=== PATIENT | male | born 1945 | race Caucasian/White ===

== ENCOUNTER 2020-09-25 19:20 | Inpatient (IN) | payer MEDICARE ==
[2020-09-25] MEDS: Cyclobenzaprine 10 MG TAB PO PRN (22:58)
[2020-09-25] MEDS: traMADol HCl 50 MG TAB PO PRN (22:59)
[2020-09-26] MEDS: Ascorbic Acid 500 mg Chewable Tablet PO SCH (09:13)
[2020-09-26] MEDS: Cyclobenzaprine 10 MG TAB PO PRN (09:14)
[2020-09-26] MEDS: Acetaminophen 325 MG TAB PO PRN (09:14)
[2020-09-26] MEDS: PSEUDOEPHEDRINE PO SCH ×2 (13:16→21:48)
--- NOTE | 2020-09-26 13:21 | HP ---
PRINCIPAL DIAGNOSIS: Right hip fracture, status post surgical fixation for therapy. BRIEF HISTORY: This is a pleasant 75-year-old gentleman with history of Parkinson disease, apparently fell at home. He was evaluated by his physician for persistent pain and x-ray showed a displaced femoral neck fracture on the right. He was referred to the hospital for admission and evaluation and Dr. Castillo operated on him on 09/20 with a percutaneous screw fixation. Postoperative period was uneventful and he was felt to be a candidate for inpatient rehabilitation and transferred here. The patient did have an echocardiogram done, which showed an ejection fraction of 50% to 55% with moderately dilated left atrium and mild aortic and tricuspid regurgitation. Currently, the patient is up in bed, eating lunch. He is a poor historian. He denies any pain. No family at bedside. Discussed with nursing. PAST MEDICAL HISTORY: 1. Parkinson disease. 2. Osteoporosis. PAST SURGICAL HISTORY: Tonsillectomy. MEDICATIONS: He has been transferred here on the following medications; 1. Tylenol 650 p.o. q.6 p.r.n. 2. Vitamin C 1000 mg daily. 3. Flexeril 5 mg t.i.d. p.r.n. 4. Melatonin 6 mg at bedtime. 5. Pseudoephedrine one tablet q.12 scheduled. 6. Mirapex 0.125 mg at bedtime. 7. Tramadol 50 mg q.6 p.r.n. for moderate pain. ALLERGIES: FENTANYL. FAMILY HISTORY: Noncontributory to current admission. PSYCHOSOCIAL HISTORY: The patient apparently is and lives at home with his spouse. No documented tobacco, alcohol, or recreational drug abuse. REVIEW OF SYSTEMS: GENERAL: The patient denies any change in weight or fatigue. CARDIOVASCULAR: Denies any chest pain, shortness of breath, palpitations, PND, orthopnea, or pedal edema. RESPIRATORY: Denies any chronic cough, expectoration, or pleuritic-type chest pain. GASTROINTESTINAL: Denies any nausea, vomiting, diarrhea, constipation, hematemesis, melena, or hematochezia. GENITOURINARY: Denies any frequency, urgency, dysuria, or hematuria. EXTREMITIES: Right hip and leg pain. SKIN: Denies any rash. ENT: Denies any changes with speech, vision, or swallowing. PHYSICAL EXAMINATION: GENERAL: A pleasant 75-year-old male, who is up in bed, enjoying breakfast. He denies any questions or concerns. He is not in any distress. VITAL SIGNS: He is afebrile. Heart rate is 74, respirations 16, oxygen saturation 94% on room air, blood pressure 101/57. HEENT: Normocephalic and atraumatic. Pupils equally reacting to light and accommodation. NECK: No JVD, thyromegaly, cervical adenopathy, or throat exudates. No carotid bruits. CARDIOVASCULAR: S1 and S2 plus. Rate and rhythm regular. RESPIRATORY: Normal vesicular breath sounds heard in all lung nguyen. ABDOMEN: Soft, nontender. Bowel sounds heard in all quadrants. EXTREMITIES: Without cyanosis or clubbing. Trace edema to right leg. Right hip incision with dressing. CENTRAL NERVOUS SYSTEM: Awake and responsive. Cranial nerves 2 through 12 grossly intact. Mild cogwheel rigidity. No obvious tremors. Generalized weakness. LABORATORY DATA: No laboratory values were done in this admission. IMPRESSION: 1. Right hip fracture, status post surgical fixation. 2. Parkinson disease. 3. Osteoporosis. 4. Anemia, likely due to acute blood loss. 5. Deconditioning. PLAN: 1. Continue discharge medications from previous hospitalization. 2. Nutritional support. 3. Orthopedic precautions. 4. DVT prophylaxis with Lovenox. 5. Decubitus precautions. 6. Stress ulcer prophylaxis. 7. Fall precautions. 8. PT/OT eval and treat. 9. Episodes of PACs and PJCs that were bigeminy, which resolved spontaneously. ESTIMATED LENGTH OF STAY: Two weeks. Job ID: [id number]
[2020-09-26 15:46] LABS: SARS-CoV-2 MS2 Positive; SARS-CoV-2 N Gene Negative; SARS-CoV-2 S Gene Negative; SARS-CoV-2 by NAA Not Detected (NotDetected); SARS-CoV-2 orf1ab Negative
[2020-09-26] MEDS: Melatonin 3 MG TAB PO SCH (21:49)
[2020-09-26] MEDS: Pramipexole Di-HCl 0.25 MG TAB PO SCH (21:50)
[2020-09-27 05:38] LABS: Anion Gap 14 mmol/L (10-20); BUN (Urea Nitrogen) 29 mg/dL (8.4-25.7); Calc. Creatinine Clearance 79 mL/min (70-130); Calcium 9.3 mg/dL (7.8-10.44); Carbon Dioxide 24 mmol/L (23-31); Chloride 103 mmol/L (98-107); Glucose 94 mg/dL (83-110); Potassium 4.6 mmol/L (3.5-5.1); Sodium 136 mmol/L (136-145)
[2020-09-27 05:41] LABS: Band 6 % (5-11); Eosinophils 6 % (0-10); Hemoglobin 14.9 g/dL (14.0-18.0); Lymphocytes 18 % (21-51); MDiff Complete? YES; Mean Corpuscular HGB CONC 33.8 g/dL (32.0-36.0); Mean Corpuscular Hemoglobin 32.2 pg (27.0-31.0); Mean Corpuscular Volume 95.2 fL (78.0-98.0); Mean Platelet Volume 8.2 fL (7.4-10.4); Metamyelocyte 2 % (0-0); Monocytes 6 % (0-10); Myelocyte 1 % (0-0); Neutrophil 55 % (42-75); Platelet Count 211 thou/uL (130-400); Platelet Morphology Comment Appears Adequate; RBC Distribution Width 12.2 % (11.5-14.5); RBC Morphology Normal; Reactive Lymphocytes 6 % (0-10); Red Blood Cell (RBC) Count 4.62 mill/uL (4.70-6.10); White Blood Cell (WBC) Count 8.5 thou/uL (4.8-10.8)
[2020-09-27] MEDS: traMADol HCl 50 MG TAB PO PRN ×2 (08:43→22:54)
[2020-09-27] MEDS: Ascorbic Acid 500 mg Chewable Tablet PO SCH (08:43)
[2020-09-27] MEDS: PSEUDOEPHEDRINE PO SCH (08:45)
--- NOTE | 2020-09-27 12:48 | PRG ---
DATE OF SERVICE: 09/27/2020 SUBJECTIVE: Mr. Odell is up in his bed, just finished lunch. He states that he did not get enough food to eat and dietitian is actually working with him on that. He is doing well with therapy. He denies any questions. Pain medicines are helping. Unfortunately, apparently, his home medication of the pseudoephedrine is not available and his heart rate is dropping with therapy. We will try to substitute something similar what we have in the formulary as apparently his is unable to bring it per nursing. OBJECTIVE: VITAL SIGNS: He is afebrile, heart rate 72, respirations 18, oxygen saturation 97% on room air, blood pressure 145/69. CARDIOVASCULAR SYSTEM: S1 and S2 plus. RESPIRATORY SYSTEM: Normal vesicular breath sounds. ABDOMEN: Soft, nontender. Bowel sounds heard in all quadrants. EXTREMITIES: Without cyanosis or clubbing. Right hip incision is healthy. CENTRAL NERVOUS SYSTEM: Mild cognitive rigidity, generalized weakness, otherwise nonfocal. LABORATORY VALUES: White count is 8.5, H and H are 14.9 and 44. Sodium 136, potassium 4.6, BUN and creatinine 29 and 0.75. IMPRESSION: 1. Right hip fracture, status post surgical fixation. 2. Parkinson disease. 3. Possible autonomic neuropathy with episodes of bradycardia. He is supposed to be on pseudoephedrine 1 tablet q.12. 4. Osteoporosis. 5. Deconditioning. PLAN: 1. Continue current medications. 2. Try to find an alternative for his pseudoephedrine. 3. Nutritional support. Dietitian is working on giving him adequate calorie intake. The patient states he is hungry after lunch. 4. Continue therapy. 5. Orthopedic precautions and incision care. 6. DVT prophylaxis with PlexiPulses. 7. Routine laboratory values. 8. Continue therapy. 9. Discussed with the patient and staff. All questions answered. Job ID: [id number]
[2020-09-27] MEDS: Pseudoephedrine HCl 30 MG TAB PO SCH (17:46)
[2020-09-27] MEDS: Pramipexole Di-HCl 0.25 MG TAB PO SCH (20:27)
[2020-09-27] MEDS: Melatonin 3 MG TAB PO SCH (20:29)
[2020-09-27] MEDS: Cyclobenzaprine 10 MG TAB PO PRN (22:54)
[2020-09-28] MEDS: Pseudoephedrine HCl 30 MG TAB PO SCH ×4 (01:15→17:59)
[2020-09-28] MEDS: traMADol HCl 50 MG TAB PO PRN (05:44)
[2020-09-28] MEDS: Ascorbic Acid 500 mg Chewable Tablet PO SCH (09:09)
--- NOTE | 2020-09-28 13:04 | PRG ---
DATE OF SERVICE: 09/28/2020 SUBJECTIVE: Mr. Odell is resting in bed. Denies any complaints. Apparently, he is more happy with his lunch dietitian. Wonders when he is ready to go home. Nursing were concerned about his left knee. They said it was warm and red, and it is completely normal to me. The patient also denies any concerns. He denies any trauma. OBJECTIVE: VITAL SIGNS: He is afebrile; heart rate 62; respirations 18; oxygen saturation, I do not have anything documented; and blood pressure is 103/49. CARDIOVASCULAR SYSTEM: S1 and S2 plus. Heart rate seems to be doing better with the pseudoephedrine. RESPIRATORY SYSTEM: Normal vesicular breath sounds. ABDOMEN: Soft, nontender. Bowel sounds heard in all quadrants. EXTREMITIES: Without cyanosis, clubbing. MUSCULOSKELETAL: Right hip incision is healthy. CENTRAL NERVOUS SYSTEM: Generalized weakness. IMPRESSION: 1. Right hip fracture, status post surgical fixation. 2. Parkinson disease. 3. Possible autonomic neuropathy. 4. Osteoporosis. 5. Improving deconditioning. PLAN: 1. Continue current medications including pseudoephedrine. 2. Nutritional support. 3. Orthopedic precautions. 4. Incision care. 5. DVT prophylaxis with PlexiPulses. 6. Decubitus precaution. 7. Stress ulcer prophylaxis. 8. Continue therapy. Job ID: [id number]
[2020-09-28] MEDS: Melatonin 3 MG TAB PO SCH (20:16)
[2020-09-28] MEDS: Pramipexole Di-HCl 0.25 MG TAB PO SCH (20:16)
[2020-09-29] MEDS: Pseudoephedrine HCl 30 MG TAB PO SCH ×5 (00:14→23:29)
[2020-09-29] MEDS: Ascorbic Acid 500 mg Chewable Tablet PO SCH (08:50)
[2020-09-29] MEDS: Acetaminophen 325 MG TAB PO PRN ×2 (12:29→21:34)
--- NOTE | 2020-09-29 16:34 | PRG ---
DATE OF SERVICE: 09/29/2020 SUBJECTIVE: Mr. Odell is doing well. Denies any complaints. His spouse is in the room. She had some questions replacement for his levodopa. I advised her that I am not sure of that, but he will continue his as well as his Mirapex, but the levodopa-carbidopa adjustment really ideally should be made by his neurologist. From a hip surgery standpoint, he is doing well and no concerns. OBJECTIVE: VITAL SIGNS: He is afebrile, heart rate 87, respirations 18, oxygen saturation 93% on room air, blood pressure 133/64. CARDIOVASCULAR SYSTEM: S1 and S2 plus. RESPIRATORY SYSTEM: Normal vesicular breath sounds. ABDOMEN: Soft and nontender. Bowel sounds heard in all quadrants. EXTREMITIES: Without cyanosis or clubbing. Hip incision is healthy. CENTRAL NERVOUS SYSTEM: Generalized weakness, otherwise nonfocal. IMPRESSION: 1. Right hip fracture, status post surgical fixation. 2. Parkinson disease. 3. Osteoporosis. 4. Possible autonomic neuropathy. 5. Deconditioning. PLAN: 1. Continue current medications. 2. Nutritional support. 3. DVT prophylaxis with PlexiPulses. 4. Decubitus precautions. 5. Stress ulcer prophylaxis. 6. Orthopedic precautions. 7. Outpatient followup with Neurology. 8. Continue therapy. 9. Discussed with spouse. All questions answered. Job ID: [id number]
[2020-09-29] MEDS: Pramipexole Di-HCl 0.25 MG TAB PO SCH (21:33)
[2020-09-29] MEDS: Melatonin 3 MG TAB PO SCH (21:34)
[2020-09-30] MEDS: Pseudoephedrine HCl 30 MG TAB PO SCH ×4 (05:55→23:50)
[2020-09-30] MEDS: Ascorbic Acid 500 mg Chewable Tablet PO SCH (08:47)
[2020-09-30] MEDS ORDERED: Milk Of Magnesia 30 ML UDCUP PO PRN (15:19)
--- NOTE | 2020-09-30 15:36 | PRG ---
DATE OF SERVICE: 09/30/2020 SUBJECTIVE: Mr. Odell is doing well. He would like a stool softener. Nursing will also like something stronger like milk of magnesia to be given as needed. Pain is under control. No concerns. No family at bedside. OBJECTIVE: VITAL SIGNS: He is afebrile, heart rate 82, respirations 20, oxygen saturation 97% on room air, blood pressure 116/63. CARDIOVASCULAR SYSTEM: S1 and S2 plus. RESPIRATORY SYSTEM: Normal vesicular breath sounds. ABDOMEN: Soft and nontender. Bowel sounds heard in all quadrants. EXTREMITIES: Without cyanosis or clubbing. Hip incision is healthy. CENTRAL NERVOUS SYSTEM: Generalized weakness. Mild rigidity. No obvious tremors. IMPRESSION: 1. Parkinson disease. 2. Hip fracture, status post fall and surgical fixation of the right hip. 3. Osteoporosis. 4. Possible autonomic neuropathy. 5. Constipation. 6. Deconditioning. PLAN: 1. Continue current medications. 2. Routine stool softener. 3. Milk of magnesia as needed. 4. DVT prophylaxis with PlexiPulses. 5. Orthopedic precautions and incision care. 6. Decubitus precautions. 7. Stress ulcer prophylaxis. 8. Continue therapy. 9. Routine laboratory values. Job ID: [id number]
[2020-09-30] MEDS: Melatonin 3 MG TAB PO SCH (21:33)
[2020-09-30] MEDS: Docusate 100 MG CAP PO SCH (21:33)
[2020-09-30] MEDS: Pramipexole Di-HCl 0.25 MG TAB PO SCH (21:33)
[2020-09-30] MEDS: Acetaminophen 325 MG TAB PO PRN (21:33)
[2020-10-01] MEDS: Pseudoephedrine HCl 30 MG TAB PO SCH ×3 (05:18→17:52)
[2020-10-01] MEDS: Ascorbic Acid 500 mg Chewable Tablet PO SCH (09:08)
[2020-10-01] MEDS: Docusate 100 MG CAP PO SCH ×2 (09:09→21:32)
--- NOTE | 2020-10-01 16:46 | PRG ---
DATE OF SERVICE: 10/01/2020 SUBJECTIVE: Mr. Odell is up in bed and visiting with his . He is enjoying some grades from home. He denies any questions or concerns. He is happy with his progress. His also denies any concerns. OBJECTIVE: VITAL SIGNS: He is afebrile, heart rate 67, respirations 18, oxygen saturation 97% on room air, blood pressure 101/61. CARDIOVASCULAR: S1-S2 plus. RESPIRATORY: Normal vesicular breath sounds. ABDOMEN: Soft and nontender. Bowel sounds heard in all quadrants. EXTREMITIES: Without cyanosis or clubbing. CENTRAL NERVOUS SYSTEM: Improving deconditioning. IMPRESSION: 1. Right hip fracture, status post surgical fixation. 2. Parkinson disease. 3. Osteoporosis. 4. Possible autonomic neuropathy. 5. Resolved constipation. 6. Improving deconditioning. PLAN: 1. Continue current medications. 2. Nutritional support. 3. DVT prophylaxis with PlexiPulses. 4. Decubitus precautions. 5. Stress ulcer prophylaxis. 6. Orthopedic precautions and incision care. 7. Physical therapy. 8. Routine laboratory values. Job ID: [id number]
[2020-10-01] MEDS: Melatonin 3 MG TAB PO SCH (21:32)
[2020-10-01] MEDS: Pramipexole Di-HCl 0.25 MG TAB PO SCH (21:33)
[2020-10-01] MEDS: Acetaminophen 325 MG TAB PO PRN (21:34)
[2020-10-02] MEDS: Pseudoephedrine HCl 30 MG TAB PO SCH ×5 (00:52→23:46)
[2020-10-02 00:58] VITALS: BMI 18.1
[2020-10-02] MEDS: Ascorbic Acid 500 mg Chewable Tablet PO SCH (09:09)
[2020-10-02] MEDS: Docusate 100 MG CAP PO SCH ×2 (09:10→12:58)
--- NOTE | 2020-10-02 15:01 | PRG ---
DATE OF SERVICE: 10/02/2020 SUBJECTIVE: Mr. Odell is resting in bed. He states that he is tired. His spouse is in the room. No questions or concerns. OBJECTIVE: VITAL SIGNS: He is afebrile, heart rate 99, respirations 18, oxygen saturation 96% on room air, blood pressure 118/66. CARDIOVASCULAR: S1 and S2 plus. RESPIRATORY: Normal vesicular breath sounds. ABDOMEN: Soft and nontender. Bowel sounds heard in all quadrants. EXTREMITIES: Without cyanosis or clubbing. Hip incision with dressing. CENTRAL NERVOUS SYSTEM: Generalized weakness. IMPRESSION: 1. Parkinson disease. 2. Osteoporosis. 3. Hip fracture, status post surgical fixation on the right. 4. Possible autonomic neuropathy. 5. Deconditioning. PLAN: 1. Continue current medications. 2. Nutritional support. 3. DVT prophylaxis with PlexiPulses. 4. Decubitus precautions. 5. Orthopedic precautions and incision care. 6. Continue physical therapy. 7. Routine laboratory values. Job ID: [id number]
[2020-10-02] MEDS: Pramipexole Di-HCl 0.25 MG TAB PO SCH (21:38)
[2020-10-02] MEDS: Melatonin 3 MG TAB PO SCH (21:41)
[2020-10-02] MEDS: Acetaminophen 325 MG TAB PO PRN (21:42)
[2020-10-02] MEDS ORDERED: Docusate 100 MG CAP PO SCH (22:00)
[2020-10-03] MEDS: Pseudoephedrine HCl 30 MG TAB PO SCH ×4 (05:58→23:03)
[2020-10-03] MEDS: Acetaminophen 325 MG TAB PO PRN ×2 (09:07→17:33)
[2020-10-03] MEDS: Ascorbic Acid 500 mg Chewable Tablet PO SCH (09:08)
[2020-10-03] MEDS: Docusate 100 MG CAP PO SCH ×2 (09:09→20:35)
--- NOTE | 2020-10-03 13:20 | PRG ---
DATE OF SERVICE: 10/03/2020 SUBJECTIVE: Mr. Odell is up in his chair, eating lunch. He denies any questions or concerns. His spouse is in the room. OBJECTIVE: VITAL SIGNS: He is afebrile, heart rate 50, respirations 18, oxygen saturation 96% on room air, blood pressure 132/74. CARDIOVASCULAR: S1-S2 plus. RESPIRATORY: Normal vesicular breath sounds. ABDOMEN: Soft and nontender. Bowel sounds heard in all quadrants. EXTREMITIES: Without cyanosis or clubbing. Hip incision with dressing. IMPRESSION: 1. Right hip fracture, status post surgical fixation. 2. Parkinson disease. 3. Osteoporosis. 4. Possible autonomic neuropathy. 5. Improving deconditioning. PLAN: 1. Continue current medications. 2. Nutritional support. 3. DVT prophylaxis with PlexiPulses. 4. Decubitus precautions. 5. Orthopedic precautions. 6. Physical therapy. 7. Routine laboratory values. 8. Discussed with the patient and spouse in detail. All questions answered. Job ID: [id number]
[2020-10-03] MEDS: Pramipexole Di-HCl 0.25 MG TAB PO SCH (20:33)
[2020-10-03] MEDS: Melatonin 3 MG TAB PO SCH (20:34)
[2020-10-04] MEDS: traMADol HCl 50 MG TAB PO PRN ×2 (02:01→08:56)
[2020-10-04] MEDS: Acetaminophen 325 MG TAB PO PRN ×3 (03:19→20:59)
[2020-10-04] MEDS: Pseudoephedrine HCl 30 MG TAB PO SCH ×4 (05:19→23:52)
[2020-10-04] MEDS: Ascorbic Acid 500 mg Chewable Tablet PO SCH (08:55)
[2020-10-04] MEDS: Docusate 100 MG CAP PO SCH ×2 (08:56→20:58)
--- NOTE | 2020-10-04 13:16 | PRG ---
DATE OF SERVICE: 10/04/2020 SUBJECTIVE: Mr. Odell is up in bed, eating lunch. He denies any questions or concerns. His spouse is not in the room. OBJECTIVE: VITAL SIGNS: He is afebrile, heart rate 79, respirations are 18, oxygen saturation 93% on room air, and blood pressure 112/55. CARDIOVASCULAR SYSTEM: S1 and S2 plus. RESPIRATORY SYSTEM: Normal vesicular breath sounds. ABDOMEN: Soft and nontender. Bowel sounds heard in all quadrants. EXTREMITIES: Without cyanosis or clubbing. Hip incision with dressing. CENTRAL NERVOUS SYSTEM: Generalized weakness, otherwise nonfocal. IMPRESSION: 1. Parkinson disease. 2. Right hip fracture, status post surgical fixation. 3. Osteoporosis. 4. Possible autonomic neuropathy. 5. Improving deconditioning. PLAN: 1. Continue current medications. 2. Nutritional support. 3. DVT prophylaxis with PlexiPulses. 4. Decubitus precautions. 5. Stress ulcer prophylaxis. 6. Physical therapy. 7. Routine laboratory values. Job ID: [id number]
[2020-10-04] MEDS: Pramipexole Di-HCl 0.25 MG TAB PO SCH (20:57)
[2020-10-04] MEDS: Cyclobenzaprine 10 MG TAB PO PRN (20:58)
[2020-10-04] MEDS: Melatonin 3 MG TAB PO SCH (20:58)
[2020-10-05] MEDS: traMADol HCl 50 MG TAB PO PRN ×2 (05:29→20:54)
[2020-10-05] MEDS: Pseudoephedrine HCl 30 MG TAB PO SCH ×4 (05:29→23:53)
[2020-10-05] MEDS: Ascorbic Acid 500 mg Chewable Tablet PO SCH (08:33)
[2020-10-05] MEDS: Docusate 100 MG CAP PO SCH ×2 (08:34→20:53)
[2020-10-05] MEDS: Cyclobenzaprine 10 MG TAB PO PRN ×2 (11:17→20:54)
[2020-10-05] MEDS: Acetaminophen 325 MG TAB PO PRN ×2 (11:17→20:56)
--- NOTE | 2020-10-05 13:24 | PRG ---
DATE OF SERVICE: 10/05/2020 SUBJECTIVE: Mr. Odell is doing the same. According to the weekly case conference yesterday, Therapy feels that he needs some more therapy before he goes home and they are recommending a [facility] placement. would like him to go to a facility near [place]. I will put in a consult for Case Management to arrange it. The patient is doing well otherwise. OBJECTIVE: VITAL SIGNS: He is afebrile, heart rate 55, respirations 16, oxygen saturation 94% on room air, and blood pressure 132/60. CARDIOVASCULAR SYSTEM: S1 and S2 plus. RESPIRATORY SYSTEM: Normal vesicular breath sounds. ABDOMEN: Soft, nontender. Bowel sounds heard in all quadrants. EXTREMITIES: Without cyanosis or clubbing. Hip incision is healthy. CENTRAL NERVOUS SYSTEM: Improving deconditioning. IMPRESSION: 1. Right hip fracture, status post surgical fixation. 2. Parkinson disease. 3. Osteoporosis. 4. Possible autonomic neuropathy. PLAN: 1. Continue current medications. 2. Consult Case Management for a skilled nursing/[facility] facility placement. 3. Continue therapy. 4. Routine laboratory values. 5. Discussed with the patient and spouse in detail. All questions answered. Job ID: [id number]
[2020-10-05] MEDS: Melatonin 3 MG TAB PO SCH (20:53)
[2020-10-05] MEDS: Pramipexole Di-HCl 0.25 MG TAB PO SCH (20:53)
[2020-10-06] MEDS: Pseudoephedrine HCl 30 MG TAB PO SCH ×3 (05:54→17:37)
[2020-10-06] MEDS: Ascorbic Acid 500 mg Chewable Tablet PO SCH (08:24)
[2020-10-06] MEDS: Docusate 100 MG CAP PO SCH ×2 (08:25→21:15)
--- NOTE | 2020-10-06 13:59 | PRG ---
DATE OF SERVICE: 10/06/2020 SUBJECTIVE: Mr. Odell is doing same. His spouse is in the room. He denies any questions or concerns. Arrangements are being made for him to be transferred to long-term facility in [place] for continued therapy before he goes home. OBJECTIVE: VITAL SIGNS: He is afebrile. Heart rate is 63, respirations 16, oxygen saturation 94% on room air, blood pressure 136/63. CARDIOVASCULAR: S1 and S2 plus. RESPIRATORY: Normal vesicular breath sounds. ABDOMEN: Soft, nontender. Bowel sounds heard in all quadrants. EXTREMITIES: Without cyanosis or clubbing. CENTRAL NERVOUS SYSTEM: Improving deconditioning. Hip incision with dressing. IMPRESSION: 1. Right hip fracture, status post surgical fixation. 2. Parkinson disease. 3. Osteoporosis. 4. Possible autonomic neuropathy. 5. Improving deconditioning. PLAN: 1. Continue current medications. 2. Nutritional support. 3. Continue physical therapy. 4. Discharge planning. 5. Routine laboratory values. 6. Discussed with the patient and spouse in detail. All questions answered. Job ID: [id number]
[2020-10-06] MEDS: Pramipexole Di-HCl 0.25 MG TAB PO SCH (21:15)
[2020-10-06] MEDS: Melatonin 3 MG TAB PO SCH (21:15)
[2020-10-06] MEDS: Acetaminophen 325 MG TAB PO PRN (21:16)
[2020-10-07] MEDS: Pseudoephedrine HCl 30 MG TAB PO SCH ×4 (00:16→17:26)
--- NOTE | 2020-10-07 07:57 | PRG ---
DATE OF SERVICE: 10/07/2020 SUBJECTIVE: Mr. Odell is doing the same. Denies any complaints. Awaiting placement. No family at bedside. OBJECTIVE: VITAL SIGNS: He is afebrile, heart rate 92, respirations 18, oxygen saturation 94% on room air, blood pressure 97/57. CARDIOVASCULAR SYSTEM: S1, S2 plus. RESPIRATORY SYSTEM: Normal vesicular breath sounds. ABDOMEN: Soft, nontender. Bowel sounds heard in all quadrants. EXTREMITIES: Without cyanosis, clubbing. Right hip incision is healthy. CENTRAL NERVOUS SYSTEM: Improving, deconditioning. IMPRESSION: 1. Right hip fracture, status post surgical fixation. 2. Parkinson disease. 3. Osteoporosis. 4. Possible autonomic neuropathy. 5. Improving deconditioning. 6. Muscle spasticity. PLAN: 1. Switch from Flexeril to methocarbamol as the patient states that also helps him sleep. 2. Continue other medications. 3. Nutritional support. 4. Orthopedic precautions. 5. Physical therapy. 6. Routine laboratory values. 7. Discharge planning. 8. Discussed with the patient and nursing in detail. All questions were answered. Job ID: [id number]
[2020-10-07] MEDS: Ascorbic Acid 500 mg Chewable Tablet PO SCH (08:16)
[2020-10-07] MEDS: Docusate 100 MG CAP PO SCH ×2 (08:17→21:32)
[2020-10-07] MEDS: Acetaminophen 325 MG TAB PO PRN ×2 (08:20→21:32)
[2020-10-07] MEDS: Methocarbamol 500 MG TAB PO PRN ×2 (11:29→17:26)
[2020-10-07] MEDS: Melatonin 3 MG TAB PO SCH (21:32)
[2020-10-07] MEDS: Pramipexole Di-HCl 0.25 MG TAB PO SCH (21:32)
[2020-10-08] MEDS: Pseudoephedrine HCl 30 MG TAB PO SCH ×5 (00:46→23:39)
[2020-10-08] MEDS: Docusate 100 MG CAP PO SCH ×2 (08:21→20:48)
[2020-10-08] MEDS: Ascorbic Acid 500 mg Chewable Tablet PO SCH (08:21)
[2020-10-08] MEDS: Methocarbamol 500 MG TAB PO PRN (09:35)
[2020-10-08] MEDS: Acetaminophen 325 MG TAB PO PRN (15:47)
[2020-10-08] MEDS: traMADol HCl 50 MG TAB PO PRN (15:49)
[2020-10-08] MEDS: Melatonin 3 MG TAB PO SCH (20:49)
[2020-10-08] MEDS: Pramipexole Di-HCl 0.25 MG TAB PO SCH (20:49)
[2020-10-09] MEDS: Methocarbamol 500 MG TAB PO PRN ×3 (01:00→21:22)
[2020-10-09] MEDS: Pseudoephedrine HCl 30 MG TAB PO SCH ×3 (05:08→17:32)
[2020-10-09] MEDS: traMADol HCl 50 MG TAB PO PRN ×3 (05:08→21:22)
[2020-10-09] MEDS: Ascorbic Acid 500 mg Chewable Tablet PO SCH (09:25)
[2020-10-09] MEDS: Docusate 100 MG CAP PO SCH ×2 (09:25→21:23)
--- NOTE | 2020-10-09 11:48 | PRG ---
DATE OF SERVICE: 10/08/2020 This is a patient of Dr. Rasheeda Reddy. SUBJECTIVE: The patient lying in bed, resting with no complaints. States he is sleeping better now, feels he is getting stronger, is still very weak. OBJECTIVE: VITAL SIGNS: Shows temperature is 97.7, pulse 72, respirations 16, O2 sats 93% on room air, blood pressure is 136/63. LUNGS: Clear. CARDIAC: Shows regular rhythm. ABDOMEN: Soft and nontender. SKIN/EXTREMITIES: Show right lateral hip incision healing well. ASSESSMENT: 1. Resolving open reduction internal fixation of right hip fracture. 2. Stable Parkinson disease but still severely weak. 3. Spasticity and autonomic neuropathy, stable secondary to Parkinson disease. PLAN: 1. Continue PT/OT. 2. Continue discharge planning. 3. Review labs. 4. Review therapy notes. Job ID: [id number]
[2020-10-09] MEDS: Acetaminophen 325 MG TAB PO PRN ×2 (13:21→21:21)
[2020-10-09] MEDS: Melatonin 3 MG TAB PO SCH (21:22)
[2020-10-09] MEDS: Pramipexole Di-HCl 0.25 MG TAB PO SCH (21:23)
[2020-10-10] MEDS: Pseudoephedrine HCl 30 MG TAB PO SCH ×3 (00:22→12:02)
--- NOTE | 2020-10-10 07:46 | PRG ---
DATE OF SERVICE: 10/09/2020 SUBJECTIVE: The patient is lying in bed, resting. No complaints. Has eaten well. Nurses have no concerns today. OBJECTIVE: VITAL SIGNS: Shows his temperature is 97.5, pulse 64, respirations 20, O2 saturations 92% on room air, blood pressure is 119/73. LUNGS: Clear. CARDIAC: Examination showed regular rhythm. ABDOMEN: Soft, nontender. NEUROLOGICAL: Reveals masked facies with cogwheel rigidity. Right hip incision healing well. ASSESSMENT: 1. Right hip fracture, healing well, status post open reduction and internal fixation. 2. Stable Parkinson disease with cogwheel rigidity and neuropathy. 3. Improving deconditioning. PLAN: 1. Restart PT and OT tomorrow. Discharge planning per recommendation of Dr. Bernal. 2. Continue previous medications. 3. Continue to monitor routine laboratories. Job ID: [id number]
[2020-10-10 08:14] VITALS: TEMP 97.7
[2020-10-10] MEDS: Docusate 100 MG CAP PO SCH (08:51)
[2020-10-10] MEDS: Acetaminophen 325 MG TAB PO PRN (08:51)
[2020-10-10] MEDS: Ascorbic Acid 500 mg Chewable Tablet PO SCH (08:51)
[2020-10-10] MEDS: Methocarbamol 500 MG TAB PO PRN (12:02)
[2020-10-10 13:44] VITALS: BP 97/50
[2020-10-10] MEDS: traMADol HCl 50 MG TAB PO PRN (15:53)
--- NOTE | 2020-10-11 05:26 | DIS ---
DATE OF ADMISSION: 09/25/2020 DATE OF DISCHARGE: 10/10/2020 PRINCIPAL DIAGNOSIS: Right hip fracture, status post surgical fixation. SECONDARY DIAGNOSES: 1. Parkinson disease. 2. Osteoporosis. 3. Possible autonomic neuropathy. 4. Improving deconditioning. 5. Muscle spasticity. COMPLICATIONS: None. ADVERSE REACTIONS: None. PROCEDURES: None. CONSULTATIONS: Physical Therapy and Occupational Therapy. HOSPITAL COURSE: The patient was admitted after suffering a fall requiring right hip open reduction and internal fixation. He was felt to be a candidate for therapy and transferred here. He has been gradually improving, but has not gotten to the point there where he is ready to go home. He was felt to be a candidate for shelter for continued therapy before he goes back home. Family has decided on a facility in [place], called [facility] and he will be discharged today. DISCHARGE PHYSICAL EXAMINATION: VITAL SIGNS: On the day of discharge, he is afebrile, heart rate 67, respirations 18, oxygen saturation 94% on room air, blood pressure 140/69. CARDIOVASCULAR SYSTEM: S1-S2 plus. RESPIRATORY SYSTEM: Normal vesicular breath sounds. ABDOMEN: Soft, nontender. Bowel sounds in all quadrants. EXTREMITIES: Without cyanosis, clubbing. Hip incision is healthy. CENTRAL NERVOUS SYSTEM: Generalized weakness. DISCHARGE MEDICATIONS: 1. Tylenol 650 q.6 p.r.n. 2. Vitamin C 1000 mg daily. 3. Colace 100 mg b.i.d. 4. Milk of mag 30 mL daily as needed. 5. Melatonin 6 mg at bedtime. 6. Robaxin 500 mg q.i.d. p.r.n. muscle spasms. 7. Mirapex 0.125 mg at bedtime. 8. Sudafed 30 mg q.6 hours if possible, if they have the Sudafed extended release that he was taking 60 q.12. This is to keep his heart rate up while doing therapy. 9. Tramadol 50 mg p.o. q.6 p.r.n. He will follow up with his PCP. The biomedical analytical scientist will manage his care there. Continue orthopedic precautions nursing check and see if he needs any staple removed. According to my note, this was removed actually on the and wound looks good. He does not need any prescriptions. He is also on multiple supplements. For full details, please see chart. Total time spent on this discharge 25 minutes. Job ID: [id number]
== END 2020-10-10 16:35 | DRG 560 ==
LOC: NAV ACUTE 19:20
PROVIDERS: ADMIT Internal Medicine; ATTEND Internal Medicine
DX: S72.001D Fracture of unspecified part of neck of right femur, subsequent encounter for closed fracture with routine healing (principal); D62 Acute posthemorrhagic anemia; Z20.828 Contact with and (suspected) exposure to other viral communicable diseases; W19.XXXD Unspecified fall, subsequent encounter; G20 Parkinson's disease; M81.0 Age-related osteoporosis without current pathological fracture; G90.9 Disorder of the autonomic nervous system, unspecified; M62.838 Other muscle spasm; R53.81 Other malaise; R00.1 Bradycardia, unspecified; K59.00 Constipation, unspecified; Z90.49 Acquired absence of other specified parts of digestive tract; Z88.8 Allergy status to other drugs, medicaments and biological substances
CPT/HCPCS: 36415; 80048; 85025; 87635; U0003